=== PATIENT | female | born 1995 | race Caucasian/White ===

== ENCOUNTER 2020-08-10 23:08 | Emergency (ER) | payer OTHER ==
[~2020-08-10] VITALS: Ht 165.1 cm; Wt 63.5 kg
[2020-08-10 23:15] VITALS: BP_SYST 112
--- NOTE | 2020-08-10 23:18 | NUR ---
Patient to ER bed 7 to gown for evaluation. Side rails up.
--- NOTE | 2020-08-10 23:34 | NUR ---
DR. WOODWARD AT BEDSIDE TO ASSESS
--- NOTE | 2020-08-10 23:35 | NUR ---
Patient alert & oriented x4 c/o heavy vaginal bleeding that started 08/09/20. Patient reports she recently was told she was . Patient has been lightly spotting x 1 week. Patient reports right lower abdominal pain & tenderness upon palpation. Patient states she has been experiencing lightheadedness upon standing. Patient denies shortness of breath, near syncope, fever, chills, nausea, vomiting. Pt . Patient placed on fermenter wine, breathing even and unlabored, no signs of acute distress. Will continue to monitor.
--- NOTE | 2020-08-10 23:36 | NUR ---
Patient reports hx of IV drug use and recent relaspe on Fentanyl about a month ago.
[2020-08-10] MEDS ORDERED: NACL 0.9% 1,000 ML IV ONE (23:45)
--- NOTE | 2020-08-10 23:50 | NUR ---
# 22 gauge angiocath placed to RIGHT UPPER ARM. Use of asceptic technique. Opsite placed over site. Blood return noted. Flushed with 10 cc of normal saline. No evidence of infiltration noted. Patient tolerated well.
[2020-08-11 00:10] LABS: BILIRUBIN,URINE NEGATIVE (NEGATIVE); BLOOD, URINE 3+ (NEGATIVE); CLARITY/URINE CLEAR (CLEAR); COLOR,URINE YELLOW (YELLOW); GLUCOSE,URINE NEGATIVE (NEGATIVE); KETONES,URINE NEGATIVE (NEGATIVE); LEUKOCYTE ESTERASE ,URINE TRACE (NEGATIVE); NITRITE, URINE NEGATIVE (NEGATIVE); PROTEIN URINE TRACE (NEGATIVE)
--- NOTE | 2020-08-11 00:13 | NUR ---
Lab at bedside drawing blood.
--- NOTE | 2020-08-11 00:22 | NUR ---
Dr. Corbett at bedside performing ultrasound.
[2020-08-11 00:25] LABS: BACTERIA,URINE MODERATE /HPF (None Seen); RBC,URINE 20-50 /HPF (0-3)
[2020-08-11 00:33] LABS: BASOPHILS # (AUTO) 0.1 K/uL (0.0-0.2); EOSINOPHILS # (AUTO) 0.4 K/uL (0.0-0.4); EOSINOPHILS % (AUTO) 4.8 % (0.0-4.0); HEMATOCRIT 36.1 % (36-48); HEMOGLOBIN 12.1 g/dL (12.0-16.0); LYMPHOCYTES # (AUTO) 3.9 K/uL (1.0-5.5); MEAN CORPUSCULAR HEMOGLOBIN 31 pg (27-31); MEAN CORPUSCULAR HGB CONC 34 % (32-36); MEAN CORPUSCULAR VOLUME 91 fL (79.0-98.0); MONOCYTES # (AUTO) 0.4 K/uL (0.0-1.0); MONOCYTES % (AUTO) 5.3 % (1.7-9.3); NEUTROPHILS % (AUTO) 38.9 % (40.0-70.0); PLATELET COUNT (AUTO) 326 K/uL (130-430); RED BLOOD CELL COUNT(AUTO) 3.97 MIL/uL (4.2-6.2); RED CELL DISTRIBUTION WIDTH 12.6 % (9.0-15.0); WHITE BLOOD COUNT (AUTO) 7.8 K/uL (4.8-10.8)
[2020-08-11 00:53] LABS: CALCIUM 7.6 mg/dL (8.4-11.0); CREATININE 0.72 mg/dL (0.55-1.30); POTASSIUM 3.8 mmol/L (3.5-5.1)
[2020-08-11 00:59] LABS: ALBUMIN 3.2 g/dL (3.4-4.8); TOTAL BILIRUBIN 0.1 mg/dL (0.0-1.0)
[2020-08-11] MEDS ORDERED: ACETAMINOPHEN 500 MG TABLET PO ONE (01:30)
--- NOTE | 2020-08-11 01:30 | NUR ---
PT REFUSED TO HAVE A PELVIC EXAM. DR. YAO AWARE.
[2020-08-11 01:55] VITALS: BP_SYST 108
--- NOTE | 2020-08-11 01:55 | NUR ---
Patient does not wish to proceed with medical care recommended by Dr. Corbett. Patient given information related to possible complications, up to and including , which could occur as a result of leaving hospital at this time. Patient verbalizes understanding of risks involved leaving against medical advice. Patient has signed AMA form.
[2020-08-11] MEDS ORDERED: CEPH250C PO (01:59)
== END 2020-08-11 01:55 | disposition left against medical advice (07) ==
LOC: SED 23:08
DX: O20.9 Hemorrhage in early pregnancy, unspecified (principal); O23.41 Unspecified infection of urinary tract in pregnancy, first trimester; Z79.899 Other long term (current) drug therapy; Z3A.01 Less than 8 weeks gestation of pregnancy
CPT/HCPCS: 36415; 81000; 80053; 81025; 84702; 85025; 86900; 86901; 87086; 96360; 99284; J7030